=== PATIENT | female | born 1965 | race Caucasian/White ===

== ENCOUNTER 2017-03-03 17:21 | Inpatient (IN) | payer OTHER ==
[~2017-03-03] VITALS: Ht 170.2 cm; Wt 78.2 kg
[2017-03-03 18:22] LABS: BILIRUBIN NEGATIVE (NEGATIVE); BLOOD 3+ Ery/uL (NEGATIVE); CLARITY CLEAR (CLEAR); COLOR YELLOW (YELLOW); GLUCOSE (U) NORMAL (NORMAL); KETONE (U) TRACE mg/dL (NEGATIVE); LEUKOCYTES 2+ Leu/uL (NEGATIVE); NITRITE NEGATIVE (NEGATIVE); PROTEIN 3+ mg/dL (NEGATIVE); SPECIFIC GRAVITY 1.025 (1.001-1.030)
[2017-03-03 18:29] LABS: BACTERIA 2+; URINARY RBC 20-50; URINARY WBC TNTC
[2017-03-03 18:31] LABS: BASOPHIL 0.4 % (0-2); EOSINOPHIL 0.6 % (0-5); HCT 40.3 % (37.0-47.0); HGB 14.3 g/dl (12.5-16.0); MCH 30.6 pg (25.0-31.0); MCHC 35.5 g/dL (32.0-36.0); MCV 86.1 fL (78.0-100.0); MONOCYTE 9.5 % (0-12); MPV 9.1 fL (6.0-9.5); NEUTROPHIL 81.5 % (41-80); PLT 453 K/uL (150-400); RBC 4.68 M/uL (4.20-5.40); RDW 14.5 % (11.5-14.0)
[2017-03-03 18:33] LABS: WBC 22.6 K/uL (4.0-10.5)
[2017-03-03 18:47] LABS: ALBUMIN 3.8 g/dL (3.5-5.0); BILIRUBIN - TOTAL 0.9 mg/dL (0.1-1.0); CREATININE 1.7 mg/dL (0.5-1.0); GLOBULIN (CALCULATION) 2.9 g/dL (2.2-4.2); TOTAL PROTEIN 6.7 g/dL (6.4-8.3)
[2017-03-04 05:49] LABS: BASOPHIL 0.3 % (0-2); EOSINOPHIL 0.1 % (0-5); HGB 12.7 g/dl (12.5-16.0); LYMPHOCYTE 7.4 % (15-48); MCH 30.6 pg (25.0-31.0); MCHC 35.3 g/dL (32.0-36.0); MCV 86.7 fL (78.0-100.0); MONOCYTE 6.4 % (0-12); MPV 9.6 fL (6.0-9.5); NEUTROPHIL 85.8 % (41-80); PLT 431 K/uL (150-400); RBC 4.15 M/uL (4.20-5.40); RDW 14.7 % (11.5-14.0)
[2017-03-04 05:59] LABS: WBC 27.2 K/uL (4.0-10.5)
[2017-03-04 06:23] LABS: CREATININE 1.7 mg/dL (0.5-1.0); POTASSIUM 3.4 mmol/L (3.5-5.1)
[2017-03-05 05:44] LABS: BASOPHIL 0.3 % (0-2); EOSINOPHIL 0.8 % (0-5); HCT 32.1 % (37.0-47.0); HGB 11.4 g/dl (12.5-16.0); LYMPHOCYTE 8.5 % (15-48); MCH 30.6 pg (25.0-31.0); MCHC 35.5 g/dL (32.0-36.0); MCV 86.3 fL (78.0-100.0); MONOCYTE 6.8 % (0-12); MPV 9.6 fL (6.0-9.5); NEUTROPHIL 83.6 % (41-80); PLT 379 K/uL (150-400); RBC 3.72 M/uL (4.20-5.40); RDW 14.7 % (11.5-14.0); WBC 18.5 K/uL (4.0-10.5)
[2017-03-05 06:02] LABS: ALBUMIN 2.9 g/dL (3.5-5.0); BILIRUBIN - TOTAL 0.4 mg/dL (0.1-1.0); CREATININE 1.6 mg/dL (0.5-1.0); GLOBULIN (CALCULATION) 2.9 g/dL (2.2-4.2); POTASSIUM 2.9 mmol/L (3.5-5.1); TOTAL PROTEIN 5.8 g/dL (6.4-8.3)
[2017-03-06 06:20] LABS: BASOPHIL 0.4 % (0-2); EOSINOPHIL 7.1 % (0-5); HCT 31.9 % (37.0-47.0); HGB 11.1 g/dl (12.5-16.0); LYMPHOCYTE 19.8 % (15-48); MCH 30.7 pg (25.0-31.0); MCHC 34.8 g/dL (32.0-36.0); MCV 88.4 fL (78.0-100.0); MONOCYTE 9.6 % (0-12); NEUTROPHIL 63.1 % (41-80); PLT 400 K/uL (150-400); RBC 3.61 M/uL (4.20-5.40); RDW 15.2 % (11.5-14.0); WBC 12.3 K/uL (4.0-10.5)
[2017-03-06 06:29] LABS: CREATININE 1.6 mg/dL (0.5-1.0); MAGNESIUM 1.87 mg/dL (1.40-2.10)
[2017-03-06 15:33] LABS: BILIRUBIN NEGATIVE (NEGATIVE); BLOOD TRACE-INTACT Ery/uL (NEGATIVE); CLARITY CLEAR (CLEAR); COLOR YELLOW (YELLOW); GLUCOSE (U) NORMAL (NORMAL); KETONE (U) NEGATIVE (NEGATIVE); LEUKOCYTES 1+ Leu/uL (NEGATIVE); NITRITE NEGATIVE (NEGATIVE); PROTEIN NEGATIVE (NEGATIVE); SPECIFIC GRAVITY <=1.005 (1.001-1.030); UROBILINOGEN 0.2 mg/dL (0.2-1.0); pH 6.5 (5.0-9.0)
[2017-03-06 15:38] LABS: BACTERIA TRACE; URINARY RBC RARE; URINARY WBC RARE
[2017-03-07 05:10] LABS: BASOPHIL 0.8 % (0-2); EOSINOPHIL 14.2 % (0-5); HCT 30.4 % (37.0-47.0); HGB 10.4 g/dl (12.5-16.0); LYMPHOCYTE 24.6 % (15-48); MCH 30.4 pg (25.0-31.0); MCHC 34.2 g/dL (32.0-36.0); MCV 88.9 fL (78.0-100.0); MONOCYTE 10.1 % (0-12); MPV 9.8 fL (6.0-9.5); NEUTROPHIL 50.3 % (41-80); PLT 435 K/uL (150-400); RBC 3.42 M/uL (4.20-5.40); RDW 15.5 % (11.5-14.0)
[2017-03-07 05:13] LABS: WBC 12.4 K/uL (4.0-10.5)
[2017-03-07 05:28] LABS: CREATININE 1.4 mg/dL (0.5-1.0); POTASSIUM 4.6 mmol/L (3.5-5.1)
[2017-03-07] MEDS ORDERED: FOLIC ACID1 MG PO (10:50)
[2017-03-07] MEDS ORDERED: LISINOPRIL-HCT1 EAC2 PO (10:51)
[2017-03-07] MEDS ORDERED: VITAMIN D1000 UNI1 PO (10:51)
[2017-03-07] MEDS ORDERED: CELEXA20 MG PO (11:26)
[2017-03-07] MEDS ORDERED: ASPIRIN CHEWABL81 MG PO (11:27)
[2017-03-07] MEDS ORDERED: ATARAX25 MG PO (11:27)
[2017-03-07] MEDS ORDERED: PERCOCET 7.5/321 TAB PO (11:27)
[2017-03-07] MEDS ORDERED: PROBIOTIC1 EAC1 PO (11:28)
[2017-03-07] MEDS ORDERED: HABITROL14 MG TOP (11:28)
[2017-03-07] MEDS ORDERED: CEFDINIR300 MG PO (11:28)
== END 2017-03-07 12:47 | disposition home or self-care (01) | DRG 872 ==
LOC: FER 17:21 → FMS 21:00
PROVIDERS: Internal Medicine; Nurse Practitioner; ADMIT Internal Medicine
DX: A41.9 Sepsis, unspecified organism (principal); N17.9 Acute kidney failure, unspecified; N18.3 Chronic kidney disease, stage 3 (moderate); N10 Acute pyelonephritis; N39.0 Urinary tract infection, site not specified; B96.20 Unspecified Escherichia coli [E. coli] as the cause of diseases classified elsewhere; R65.20 Severe sepsis without septic shock; I12.9 Hypertensive chronic kidney disease with stage 1 through stage 4 chronic kidney disease, or unspecified chronic kidney disease; Z79.82 Long term (current) use of aspirin; F17.210 Nicotine dependence, cigarettes, uncomplicated; Z96.651 Presence of right artificial knee joint; G89.4 Chronic pain syndrome; Z96.641 Presence of right artificial hip joint; F41.8 Other specified anxiety disorders; Z80.9 Family history of malignant neoplasm, unspecified; M51.36 Other intervertebral disc degeneration, lumbar region
CPT/HCPCS: 36415; 71020; 80048; 80053; 81001; 83605; 83735; 84145; 85025; 87040; 87076; 87088; 87186; J2543